=== PATIENT | male | born 1980 | race Caucasian/White ===

== ENCOUNTER 2020-07-07 03:13 | Emergency (ER) | payer OTHER ==
[~2020-07-07] VITALS: Ht 188 cm; Wt 95.3 kg
--- NOTE | 2020-07-07 03:18 | NUR ---
PT AAOX4. AMBULATORY WITH STEDY GAIT. BIBSELF C/O GENERALIZED BODY PAIN, ANXIETY S/P QUIT DRINKING 48HRS AGO. PT PLACED IN BED 9 ON MONITOR AND PULSE OX. VSS. AWAITING MD FOR EVAL AND ORDERS.
[2020-07-07] MEDS ORDERED: LORAZEPAM INJ 2 MG/ML VIAL ONE (03:34)
[2020-07-07] MEDS ORDERED: ONDANSETRON HCL/PF 4 MG/2 ML VIAL ONE (03:34)
[2020-07-07] MEDS ORDERED: ONDANSETRON HCL/PF 4 MG/2 ML VIAL IVP ONE (04:00)
[2020-07-07] MEDS ORDERED: LORAZEPAM INJ 2 MG/ML VIAL IVP ONE (04:00)
[2020-07-07] MEDS ORDERED: IV NS 0.9% 1,000 ML BAG IV ONE (04:00)
--- NOTE | 2020-07-07 05:15 | NUR ---
IV removed. Catheter intact and site benign. Pressure and 4x4 applied to site. No bleeding noted.
--- NOTE | 2020-07-07 05:15 | NUR ---
Patient discharged to home in stable condition. Written and verbal after care instructions given. Patient verbalizes understanding of instruction. Pt ambulated with steady gait. vss.
[2020-07-07 05:54] VITALS: BP 118/73
== END 2020-07-07 05:38 | disposition home or self-care (01) ==
LOC: ER 03:16
DX: F10.239 Alcohol dependence with withdrawal, unspecified (principal); Y90.9 Presence of alcohol in blood, level not specified
CPT/HCPCS: 96361; 96374; 96375; 99284; J2060; J2405; J7030

== ENCOUNTER 2021-01-22 23:51 | Emergency (ER) | payer OTHER ==
[~2021-01-22] VITALS: Ht 185.4 cm; Wt 95.3 kg
--- NOTE | 2021-01-22 23:55 | NUR ---
Pt bibself c/o anxiety n/v s/p taking marijuana. pt aaox4 breathing evenly and rapidly. Pt states he has had these "episodes for over a year". Pt appears tense; skin is warm,dry, and intact. Pt attached to monitor and pox. Pt given blanket and call light within reach
[2021-01-23] MEDS ORDERED: LORAZEPAM 1 MG TABLET PO ONE
[2021-01-23] MEDS ORDERED: IV NS 0.9% 500 ML BAG IV ONE
[2021-01-23] MEDS ORDERED: ONDANSETRON HCL/PF 4 MG/2 ML VIAL IV ONE
[2021-01-23] MEDS ORDERED: ONDANSETRON HCL/PF 4 MG/2 ML VIAL ONE (00:08)
[2021-01-23] MEDS ORDERED: LORAZEPAM 0.5 MG TABLET ONE (00:09)
--- NOTE | 2021-01-23 00:15 | NUR ---
rt ac 20g initated, blood obtained and sent to lab
[2021-01-23 00:30] LABS: BASOPHILS # (AUTO) 0.1 /CMM (0.0-0.2); BASOPHILS % (AUTO) 0.7 % (0.0-2.0); HEMATOCRIT 47 % (39-51); LYMPHOCYTES % (AUTO) 9.4 % (20.0-44.0); MEAN CORPUSCULAR HGB CONC 34 g/dl (31.0-36.0); MEAN CORPUSCULAR VOLUME 100 fL (80-96); MONOCYTES # (AUTO) 0.9 /CMM (0.1-1.30); MONOCYTES % (AUTO) 8.6 % (2.0-12.0); NEUTROPHILS # (AUTO) 8.9 /CMM (1.8-8.9); NEUTROPHILS % (AUTO) 81.3 % (43.0-81.0); PLATELET COUNT (AUTO) 226 /CMM (150-450)
--- NOTE | 2021-01-23 01:06 | NUR ---
per lab, they need to rerun the blood specimen d/t technical difficulty with machine
[2021-01-23 01:27] LABS: CALCIUM, SERUM 10.4 mg/dL (8.5-10.1); CREATININE 0.9 mg/dL (0.6-1.3); POTASSIUM 3.6 mmol/L (3.5-5.1)
[2021-01-23] MEDS ORDERED: ONDA4TAB11 PO (01:45)
--- NOTE | 2021-01-23 02:04 | NUR ---
Patient discharged to home in stable condition. Written and verbal after care instructions given. Patient verbalizes understanding of instruction. IV removed. Catheter intact and site benign. Pressure and 4x4 applied to site. No bleeding noted. Pt ambulatory with a steady gait
[2021-01-23 02:10] VITALS: BP 130/79
== END 2021-01-23 02:04 | disposition home or self-care (01) ==
LOC: ER 23:52
DX: F41.9 Anxiety disorder, unspecified (principal); F98.8 Other specified behavioral and emotional disorders with onset usually occurring in childhood and adolescence
CPT/HCPCS: 36415; 80048; 85025; 96374; 99283; J2405; J7040